=== PATIENT | female | born 1990 | race Two or more races ===

== ENCOUNTER 2022-05-30 07:33 | Outpatient (CLI) | payer BC ==
[2022-05-30 08:05] LABS: BASOPHILS # (AUTO) 0.1 X10'3 (0-0.2); BASOPHILS % (AUTO) 0.6 % (0-1); EOSINOPHILS # (AUTO) 0.3 X10'3 (0-0.9); EOSINOPHILS % (AUTO) 2.7 % (0-6); HEMATOCRIT 39.5 % (35.0-45.0); HEMOGLOBIN 13.5 g/dl (12.0-16.0); LYMPHOCYTES # (AUTO) 3.6 X10'3 (1.1-4.8); LYMPHOCYTES % (AUTO) 35.1 % (21-51); MEAN CORPUSCULAR HGB CONC 34.2 g/dL (33.0-36.5); MEAN CORPUSCULAR VOLUME 90.8 FL (78-98); MONOCYTES # (AUTO) 0.8 X10'3 (0-0.9); MONOCYTES % (AUTO) 7.5 % (2-12); NEUTROPHILS # (AUTO) 5.5 X10'3 (1.8-7.7); NEUTROPHILS % (AUTO) 54.1 % (42-75); PLATELET COUNT 331 X10'3 (140-440); RED BLOOD COUNT 4.36 X10'6 (4.20-5.60); RED CELL DISTRIBUTION WIDTH 13.3 % (11.5-14.5); WHITE BLOOD COUNT 10.2 X10'3 (4.5-11.0)
[2022-05-30 08:15] LABS: ALANINE AMINOTRANSFERASE 26 U/L (12-78); ALBUMIN 4.1 G/DL (3.4-5.0); ALBUMIN/GLOBULIN RATIO 1.2 (1.1-1.5); ALKALINE PHOSPHATASE 42 IU/L (46-116); ANION GAP 10 (8-16); ASPARTATE AMINO TRANSFERASE 15 U/L (10-37); BILIRUBIN,TOTAL 0.6 MG/DL (0.1-1.0); BLOOD UREA NITROGEN 9 MG/DL (7-18); BUN/CREATININE RATIO 13.8 (10.0-20.0); CALCIUM 8.7 MG/DL (8.5-10.1); CHLORIDE 103 MMOL/L (99-107); CREATININE 0.65 MG/DL (0.40-0.90); GLUCOSE 93 MG/DL (70-104); POTASSIUM 3.6 MMOL/L (3.5-5.1); SODIUM 138 MMOL/L (135-145); TOTAL CARBON DIOXIDE 25.4 MMOL/L (24-32); TOTAL PROTEIN 7.5 G/DL (6.4-8.2); eGFR > 90 ML/MIN
[2022-05-30 08:19] LABS: CLARITY,URINE CLEAR (Clear); COLOR,URINE YELLOW (Yellow); GLUCOSE, URINE NEGATIVE (Neg); KETONES,URINE NEGATIVE (Neg); LEUKOCYTE ESTERASE ,URINE NEGATIVE (Neg); NITRITES, URINE NEGATIVE (Neg); OCCULT BLOOD,URINE NEGATIVE (Neg); PH,URINE 5.5 (4.8-8.0); PROTEIN,URINE NEGATIVE (Neg); UROBILINOGEN,URINE 0.2 E.U/dL (0.2-1.0)
[2022-05-30 08:21] LABS: UA COLLECTION TYPE NON-SPECIFIED
[2022-05-30 08:25] LABS: CHOL/HDL RATIO 4.1 (0.00-4.99); CHOLESTEROL 233 MG/DL (0-200); HDL CHOLESTEROL 57 MG/DL (35-60); LDL CHOLESTEROL 161 MG/DL (50-100); TRIGLYCERIDES 57 MG/DL (20-135)
== END 2022-05-30 23:59 | disposition home or self-care (01) ==
LOC: LAB 07:33
PROVIDERS: ATTEND Nurse Practitioner Family
DX: Z30.9 Encounter for contraceptive management, unspecified (principal); N94.6 Dysmenorrhea, unspecified; L65.9 Nonscarring hair loss, unspecified; Z80.0 Family history of malignant neoplasm of digestive organs
CPT/HCPCS: 36415; 80053; 80061; 81003; 84439; 84443; 85025

== ENCOUNTER 2023-05-23 23:27 | Emergency (ER) | payer BC ==
[~2023-05-23] VITALS: Ht 170.2 cm; Wt 71.4 kg
[2023-05-23] MEDS ORDERED: ketorolac trometh inj. 60 MG/2 ML VIAL IM ONE (23:45)
[2023-05-23] MEDS: ondansetron 4mg rapidly disintigrating tab PO ONE (23:49)
[2023-05-23] MEDS: ketorolac tromethamine 15mg/ml inj. IM ONE (23:58)
[2023-05-23] MEDS: normal saline 1000ML IV soln IVB ONE (23:59)
[2023-05-23] MEDS: ketorolac trometh. 30mg/ml inj. IV STA (23:59)
[2023-05-24] MEDS: ketorolac tromethamine 15mg/ml inj. IV STA (00:07)
[2023-05-24] MEDS: acetaminophen 325mg tablet PO ONE (00:58)
[2023-05-24] MEDS ORDERED: ONDA8TAB13 PO (01:03)
[2023-05-24] MEDS: proCHLORperazine 10 MG/2 ml inj IV ONE (01:11)
[2023-05-24 01:45] VITALS: BP 103/68; PULSE 70; RESP 16; TEMP 97.9; O2SAT 98
== END 2023-05-24 01:46 | disposition home or self-care (01) ==
LOC: ER 23:28 → EEVIPCON 23:28 → ER 05-24 01:46
DX: G43.909 Migraine, unspecified, not intractable, without status migrainosus (principal); Z20.822 Contact with and (suspected) exposure to COVID-19; R50.9 Fever, unspecified
CPT/HCPCS: 36415; 87502; 87503; 87811; 96361; 96374; 99283; J1885; J7030

== ENCOUNTER 2023-05-25 09:35 | Emergency (ER) | payer BC ==
[~2023-05-25] VITALS: Ht 154.9 cm; Wt 70.5 kg
[~2023-05-25 09:35] MED LIST: ONDA8TAB13 PO
[2023-05-25 09:38] VITALS: BP 126/79; PULSE 60; O2SAT 100
[2023-05-25] MEDS ORDERED: dexamethasone 4mg/ml inj IV SCH (10:00)
[2023-05-25] MEDS ORDERED: ketorolac trometh. 30mg/ml inj. IV ONE (10:00)
[2023-05-25] MEDS: normal saline 1000ML IV soln IVB ONE (10:10)
[2023-05-25 10:32] LABS: BASOPHILS % (AUTO) 0.4 % (0-1); EOSINOPHILS # (AUTO) 0.1 X10'3 (0-0.9); EOSINOPHILS % (AUTO) 0.7 % (0-6); HEMOGLOBIN 13.7 g/dl (12.0-16.0); LYMPHOCYTES # (AUTO) 1.9 X10'3 (1.1-4.8); LYMPHOCYTES % (AUTO) 19.8 % (21-51); MEAN CORPUSCULAR HEMOGLOBIN 30.8 PG (27.0-31.0); MEAN CORPUSCULAR HGB CONC 34.2 g/dL (33.0-36.5); MEAN PLATELET VOLUME 7.7 FL (7.4-10.4); MONOCYTES # (AUTO) 0.7 X10'3 (0-0.9); MONOCYTES % (AUTO) 6.8 % (2-12); NEUTROPHILS % (AUTO) 72.3 % (42-75); PLATELET COUNT 235 X10'3 (140-440); RED BLOOD COUNT 4.44 X10'6 (4.20-5.60); RED CELL DISTRIBUTION WIDTH 13.8 % (11.5-14.5); WHITE BLOOD COUNT 9.7 X10'3 (4.5-11.0)
[2023-05-25 10:47] LABS: ALANINE AMINOTRANSFERASE 26 U/L (12-78); ALBUMIN 3.4 G/DL (3.4-5.0); ALBUMIN/GLOBULIN RATIO 0.9 (1.1-1.5); ALKALINE PHOSPHATASE 35 IU/L (46-116); ANION GAP 12 (8-16); ASPARTATE AMINO TRANSFERASE 12 U/L (10-37); BILIRUBIN,TOTAL 0.2 MG/DL (0.1-1.0); BLOOD UREA NITROGEN 11 MG/DL (7-18); BUN/CREATININE RATIO 13.9 (10.0-20.0); C-REACTIVE PROTEIN 4.49 MG/DL (0.0-0.5); CALCIUM 8.4 MG/DL (8.5-10.1); CHLORIDE 110 MMOL/L (99-107); CREATININE 0.79 MG/DL (0.40-0.90); GLUCOSE 126 MG/DL (70-104); POTASSIUM 3.8 MMOL/L (3.5-5.1); SODIUM 146 MMOL/L (135-145); TOTAL CARBON DIOXIDE 24.1 MMOL/L (24-32); TOTAL PROTEIN 7.1 G/DL (6.4-8.2); eCRCL 76 ML/MIN; eGFR 83 ML/MIN
[2023-05-25] MEDS: proCHLORperazine 10 MG/2 ml inj IV ONE (10:53)
[2023-05-25] MEDS: diphenhydrAMINE 50 mg/ml inj IV ONE (10:54)
[2023-05-25] MEDS: dexamethasone 4mg/ml inj IV ONE (10:54)
[2023-05-25 10:55] VITALS: RESP 16
[2023-05-25] MEDS: ketorolac tromethamine 15mg/ml inj. IV ONE (10:55)
[2023-05-25 12:36] VITALS: TEMP 98.3
== END 2023-05-25 12:40 | disposition home or self-care (01) ==
LOC: ER 09:35
DX: J06.9 Acute upper respiratory infection, unspecified (principal); R51.9 Headache, unspecified; Z79.899 Other long term (current) drug therapy
CPT/HCPCS: 36415; 80053; 85025; 86140; 96361; 96374; 96375; 99284; J0780; J1100; J1200; J1885; J7030

== ENCOUNTER → 2023-06-17 | Outpatient (CLI) | payer BC | END | disposition home or self-care (01) | LOC: RAD 07:37 | PROVIDERS: ATTEND Family Medicine | DX: N83.292 Other ovarian cyst, left side (principal); N92.1 Excessive and frequent menstruation with irregular cycle; N93.8 Other specified abnormal uterine and vaginal bleeding | CPT/HCPCS: 76830; 76856; 93976 ==

== ENCOUNTER 2023-09-19 01:26 | Outpatient (CLI) | payer BC ==
[~2023-09-19 01:26] MED LIST changes: +ONDA-245 PO; -ONDA8TAB13 PO
== END 2023-09-19 23:59 | disposition home or self-care (01) ==
LOC: LAB 01:26
PROVIDERS: ATTEND Nurse Practitioner
DX: Z15.89 Genetic susceptibility to other disease (principal)
CPT/HCPCS: 36415

== ENCOUNTER 2024-04-25 10:33 | Emergency (ER) | payer BC, OTHER ==
[~2024-04-25] VITALS: Ht 154.9 cm; Wt 68.0 kg
[2024-04-25 10:37] VITALS: BP 121/90; PULSE 91; RESP 16; TEMP 98.4; O2SAT 97
[2024-04-25] MEDS ORDERED: PRED10TA23 PO (11:19)
[2024-04-25] MEDS ORDERED: AZIT250T83 PO (11:19)
== END 2024-04-25 11:39 | disposition home or self-care (01) ==
LOC: ER 10:34
DX: R05.9 Cough, unspecified (principal); J00 Acute nasopharyngitis [common cold]; R68.89 Other general symptoms and signs; Z79.52 Long term (current) use of systemic steroids
CPT/HCPCS: 96372; 99283